=== PATIENT | male | born 1945 | race Caucasian/White ===

== ENCOUNTER 2017-01-13 06:37 | Day surgery (SDC) | payer MEDICARE ==
[~2017-01-13 06:37] MED LIST: Lactated Ringers 1,000 ML IV SCH; ceFAZolin 2 GM in Premix Bag 1 BAG IV SCH
[2017-01-13] MEDS ORDERED: Midazolam 1 MG/ML 2 ML SDV ONE (07:16)
[2017-01-13] MEDS ORDERED: Bupivacaine 0.5% 10 ML SDV ONE (07:16)
[2017-01-13] MEDS ORDERED: fentaNYL 100 MCG/2 ML SDV ONE (07:16)
[2017-01-13] MEDS ORDERED: Propofol 200 MG/20 ML SDV ONE (07:16)
[2017-01-13] MEDS ORDERED: ceFAZolin 1 GM Vial ONE (07:16)
[2017-01-13] MEDS ORDERED: Ketorolac 30 MG/ML SDV ONE (07:21)
[2017-01-13] MEDS ORDERED: Ondansetron 4 MG/2 ML SDV ONE (07:21)
[2017-01-13] MEDS ORDERED: Succinylcholine/Normal Saline 200 MG/10 ML Syringe ONE (07:21)
[2017-01-13] MEDS ORDERED: Dexamethasone 4 MG/ML 5 ML MDV ONE (07:21)
--- NOTE | 2017-01-13 07:48 | PCM.PREANE ---
Preanesthetic Assessment - Anesthesia/Transfusion/Family Hx Anesthesia History: Prior Anesthesia Without Reaction (no anesthetic comps, but had post op urinary retention after Rot Cuff surgery) Family History of Anesthesia Reaction: No Transfusion History: No Prior Transfusion(s) - Review of Systems General: No Symptoms Pulmonary: No Symptoms Cardiovascular: No Symptoms Gastrointestinal: No Symptoms Neurological: No Symptoms Other: Reports: None - Physical Assessment NPO Status Date: 01/12/17 O2 Sat by Pulse Oximetry: 95 Respiratory Rate: 16 Vital Signs: Last Vital Signs Temp 36.0 C 01/13/17 07:22 Pulse 71 01/13/17 07:22 Resp 16 01/13/17 07:22 BP 134/64 01/13/17 07:22 Pulse Ox 95 01/13/17 07:22 Height: 1.77 m Weight: 76.204 kg ASA Class: 2 Mental Status: Alert & Oriented x3 Airway Class: Mallampati = 1 Dentition: Reports: Normal Dentition ROM/Head Extension: Full Lungs: Clear to Auscultation, Normal Respiratory Effort Cardiovascular: Regular Rate, Regular Rhythm - Allergies Allergies/Adverse Reactions: Allergies Allergy/AdvReac Type Severity Reaction Status Date / Time No Known Allergies Allergy Verified 01/09/17 14:08 - Acknowledgements Anesthesia Type Planned: General Anesthesia Pt an Appropriate Candidate for the Planned Anesthesia: Yes Alternatives and Risks of Anesthesia Discussed w Pt/Guardian: Yes Pt/Guardian Understands and Agrees with Anesthesia Plan: Yes PreAnesthesia Questionnaire Other HEENT History: wears glasses Cardiovascular History: Reports: Hypertension Genitourinary History: Reports: BPH Musculoskeletal History: Reports: None Endocrine/Metabolic History: Reports: None - Past Surgical History HEENT Surgical History: Reports: None Male Surgical History: Reports: Vasectomy Musculoskeletal Surgical History: Reports: Shoulder Surgery Other Musculoskeletal Surgeries/Procedures:: left RTCR - SUBSTANCE USE Smoking Status *Q: Former Smoker Tobacco Use Within Last Twelve Months: Cigarettes Recreational Drug Use History: No - HOME MEDS Home Medications: Home Meds Aspirin [Adult Low Dose Aspirin EC] 81 mg PO DAILY 01/09/17 [History] Lisinopril/Hydrochlorothiazide [Lisinopril-Hctz 20-12.5 mg Tab] 1 tab PO DAILY 01/09/17 [History] - CURRENT (IN HOUSE) MEDS Current Meds: Current Medications Cefazolin Sodium/Dextrose 2 gm (/ Premix) 50 mls @ 100 mls/hr IV ONETIME JAKE Lactated Ringer's (Ringers, Lactated) 1,000 mls @ 125 mls/hr IV ASDIRECTED [facility] Last Admin: 01/13/17 07:23 Dose: 125 mls/hr Discontinued Medications Bupivacaine HCl (Sensorcaine-Mpf 0.5%) Confirm Administered Dose 30 ml .ROUTE .STK-MED ONE Stop: 01/13/17 07:17 Cefazolin Sodium (Ancef) Confirm Administered Dose 1 gm .ROUTE .STK-MED ONE Stop: 01/13/17 07:17 Dexamethasone (Dexamethasone) Confirm Administered Dose 20 mg .ROUTE .STK-MED ONE Stop: 01/13/17 07:22 Fentanyl (Sublimaze) Confirm Administered Dose 200 mcg .ROUTE .STK-MED ONE Stop: 01/13/17 07:17 Ketorolac Tromethamine (Toradol) Confirm Administered Dose 30 mg .ROUTE .STK- MED ONE Stop: 01/13/17 07:22 Lidocaine HCl (Xylocaine-Mpf 1%) Confirm Administered Dose 5 ml .ROUTE .STK-MED ONE Stop: 01/13/17 07:22 Midazolam HCl (Versed 1 Mg/Ml) Confirm Administered Dose 2 mg .ROUTE .STK-MED ONE Stop: 01/13/17 07:17 Ondansetron HCl (Zofran) Confirm Administered Dose 4 mg .ROUTE .STK-MED ONE Stop: 01/13/17 07:22 Propofol (Diprivan 20 Ml) Confirm Administered Dose 200 mg .ROUTE .STK-MED ONE Stop: 01/13/17 07:17 Succinylcholine Chloride (Succinylcholine In Ns Pf) Confirm Administered Dose 200 mg .ROUTE .STK-MED ONE Stop: 01/13/17 07:22
[2017-01-13] MEDS ORDERED: Morphine 10 MG/ML Syringe IVPUSH PRN (09:50)
[2017-01-13] MEDS ORDERED: Acetaminophen/HYDROcodone 325-5 MG Tab PO PRN (09:50)
[2017-01-13] MEDS ORDERED: Ondansetron 4 MG/2 ML SDV IVPUSH PRN (09:50)
--- NOTE | 2017-01-13 09:54 | PCM.OPNOTE ---
- General Post-Op/Procedure Note Date of Surgery/Procedure: 01/13/17 Operative Procedure(s): Bilateral inguinal hernia repair with extra large Bard PerFix plug and patch Pre Op Diagnosis: Bilateral reducible inguinal hernia Post-Op Diagnosis: Bilateral direct inguinal hernias Anesthesia Technique: General ET Tube (ASA II) Primary Surgeon: Cesar Haile Loadmaster: Roseline Butler Fluid Replacement, Intraop: 1,500 EBL in mLs: 20 Condition: Good Free Text/Narrative:: Dictation [id number] CPT CODE [id number]
[2017-01-13] MEDS ORDERED: Lactated Ringers 1,000 ML IV SCH (10:00)
[2017-01-13] MEDS ORDERED: Acetaminophen 1,000 MG in Premix Bag 1 BAG IV ONE (10:13)
--- NOTE | 2017-01-13 10:14 | PCM.POSTAN ---
POST ANESTHESIA ASSESSMENT - MENTAL STATUS Mental Status: Alert, Oriented - RESPIRATORY Respiratory Status: Respiratory Rate WNL, Airway Patent, O2 Saturation Stable - CARDIOVASCULAR CV Status: Pulse Rate WNL, Blood Pressure Stable - GASTROINTESTINAL GI Status: No Symptoms - PAIN Pain Score: 3 - POST OP HYDRATION Hydration Status: Adequate & Stable
[2017-01-13 10:58] VITALS: BP 122/64
--- NOTE | 2017-01-13 10:58 | OR ---
SURGEON: Cesar Haile M.D. DATE OF PROCEDURE: 01/13/2017 OPERATION PERFORMED: Repair of bilateral direct inguinal hernia with extra-large Bard PerFix plug and patch. RISK ANALYST: NICOLE Osborne student. ANESTHESIA: General endotracheal. ASA CLASSIFICATION: II. PREOPERATIVE DIAGNOSIS: Bilateral inguinal hernia. POSTOPERATIVE DIAGNOSIS: Large bilateral direct inguinal hernia. ESTIMATED BLOOD LOSS: 20 mL. FLUID REPLACEMENT: 1500 mL of crystalloid. DESCRIPTION OF PROCEDURE: The patient was taken to the operating room and placed on the operating table in the supine position. Time-out was called for appropriate identification the patient and procedure. The surgical site had been marked and numbered. Following satisfactory attainment of general endotracheal anesthesia, the abdomen was prepped with DuraPrep solution. Sterile drapes were applied. It should be noted that thigh-high TEDs and sequential compression boots were in place. The left side was more symptomatic side. The skin incisions were marked out in both inguinal creases to be as symmetric as possible. The left inguinal crease was infiltrated with 0.5% Marcaine solution using a total of 10 mL of Marcaine. The skin incision was made and deepened through the subcutaneous tissue obtaining hemostasis with the use of electrocautery. The external oblique was opened in the direction of its fibers. The floor was very weak and it was obvious this was a large direct inguinal hernia. The cord was mobilized away from the hernia sac and encircled with a Tea drain, then retracted out of harm's way. The hernia was mobilized and reduced. Using an extra-large Bard PerFix plug and patch that had been soaked in 1% Ancef solution, the plug was placed into the medial defect and secured with an 0 Ethibond suture. The patch was placed over this and both plug and patch were secured medially and inferiorly to Larry's ligament and superiorly to transversalis fascia. This repair was carried out from medial to lateral. The inferior stitch was to the inguinal ligament and again superiorly to the transversalis fascia. The wings of the patch were brought around the cord and secured laterally again with an 0 Ethibond suture. Once all sutures have been placed, the patient was given a Valsalva maneuver to 40 cm of water. The repair was solid. There was no obvious bulging. The wings were secured laterally with care taken not to impinge on the cord. The wound was inspected for hemostasis. No bleeding was noted. The wound was irrigated with 1% Ancef solution. The cord was returned to its anatomic location. The external oblique was closed with running 3-0 Polysorb. Sheela's fascia was closed with running 3-0 Polysorb and the skin edges were reapproximated with subcuticular 4-0 Monocryl. Our attention was now turned to the right side. Again the skin was infiltrated with 0.5% Marcaine solution. Again, the skin incision was made and deepened through the subcutaneous tissue obtaining hemostasis with the use of electrocautery. The external oblique was quite attenuated, but was opened in the direction of its fibers. Again, there was a very large direct defect. The cord was mobilized away from this and encircled with a [place] drain to be retracted out of harm's way. An extra-large plug and patch was brought to the operating table and again soaked in 1% Ancef solution. The plug was placed into the medial defect and secured both inferiorly to Larry's ligament superiorly to the transversalis fascia with 0 Ethibond sutures. The patch was placed over this and again secured inferiorly and medially to Larry's ligament transitioning to the inguinal ligament and superiorly to the transversalis fascia. The wings were again brought around the cord laterally and secured with an 0 Ethibond suture. Once all sutures have been placed and tied, the patient was given a Valsalva maneuver to 40 cm of water. Again, there was no bulge noted. The wound was inspected for hemostasis. No bleeding was noted. The external oblique was reapproximated with running 3-0 Polysorb and the Sheela's fascia was then closed with running 3-0 Polysorb. Skin edges were reapproximated with subcuticular 4-0 Monocryl reinforced with Steri-Strips. Both incisions were dressed with Tegaderm pads. Sponge, needle, and instrument counts were all correct. The patient tolerated the procedure well. Following emergence from anesthesia and extubation, he was taken to recovery room in stable condition. DOMINICK HOOVER /[id number]
--- NOTE | 2017-01-13 12:04 | PCM48HPAN ---
Post Anesthesia Note - EVALUATION WITHIN 48HRS OF ANESTHETIC Vital Signs in Normal Range: Yes Patient Participated in Evaluation: Yes Respiratory Function Stable: Yes Airway Patent: Yes Cardiovascular Function Stable: Yes Hydration Status Stable: Yes Pain Control Satisfactory: Yes Nausea and Vomiting Control Satisfactory: Yes Mental Status Recovered: Yes - COMMENTS/OBSERVATIONS Free Text/Narrative:: able to void small ammount prior to discharge.
== END 2017-01-13 12:03 | disposition home or self-care (01) ==
LOC: MW.SDS 06:37
PROVIDERS: ATTEND Surgery
DX: K40.20 Bilateral inguinal hernia, without obstruction or gangrene, not specified as recurrent (principal); N40.1 Benign prostatic hyperplasia with lower urinary tract symptoms; R33.8 Other retention of urine; I10 Essential (primary) hypertension; Z87.891 Personal history of nicotine dependence; Z79.82 Long term (current) use of aspirin; Z79.899 Other long term (current) drug therapy; Z98.52 Vasectomy status
CPT/HCPCS: 49505; A9270; C1781; J0690; J1100; J1885; J2250; J2405; J3010; J7120; 00830; J2704